=== PATIENT | female | born 1990 | race Caucasian/White ===

== ENCOUNTER 2016-08-24 20:33 | Emergency (ER) | payer OTHER ==
[~2016-08-24] VITALS: Ht 195.6 cm; Wt 143.2 kg
[~2016-08-24 20:33] MED LIST: AMOXICILLIN 8751 TAB PO; AMOXICILLIN875 MG PO; ATIVAN 0.50.5 MG/TAB PO; BACTRIM DS 8001 TAB PO; BIRTH CONTROL PILLS; CEPHALEXIN500 M1 PO; CIPRO 500MG TA500 MG PO; DOXYCYCLINE 10100 MG PO; FLAGYL500 MG PO; FLEXERIL 1010 MG/TAB PO; LOTRIMIN1% TP; MACROBID 1100 MG/CAP PO; MEDROL 4MG DOSPA4 MG PO; MOTRIN 800800 MG/TAB PO; NAPROSYN500 MG PO; NORCO 325 MG-51 TAB PO; NORCO 325 MG-7.1 TAB PO; OMNICEF 300MG300 MG PO; PAXIL PO; PEPCID 20MG TAB20 MG PO; PERCOCET 325 MG1 TA2 PO; PERCOCET 5/321 UDTAB PO; PHARMASSURE CHE30 MG PO; PHENERGAN 25 TA25 MG PO; PHENERGAN W/CO120 ML PO; PREDNISONE20 MG PO; PREVACID 30MG30 MG PO; PRILOSEC 20MG20 MG PO; PROAIR HFA0.09 MG/AC IH; PROMETHAZINE12.5 M5 PO; PROTONIX 40MG T40 MG PO; RECLIPSEN 0.151 TAB PO; SELENIUM2 PO; SYNTHROID0.075 MG/T PO; SYNTHROID0.1 MG/TAB PO; SYNTHROID0.2 MG/TAB PO; SYNTHROID0.5 MG PO; TUSS PO; ULTRAM 50MG TAB50 MG PO; VENTOLIN0.09 MG IH; VICOPROFEN; ZITHROMAX 250M250 MG PO; ZITHROMAX Z PA250 MG PO; ZOFRAN 4MG T4 MG/TAB PO; ZOFRAN 8MG8 MG PO; ZOFRAN ODT8 MG PO; ZOFRAN8 MG PO; ZOLOFT100 MG PO
[2016-08-24 20:39] VITALS: TEMP 98.1
[2016-08-24 21:52] LABS: PH 6 (5-8); SQUAMOUS EPITHELIAL 0-2 /hpf; URINE APPEARANCE Hazy; URINE BACTERIA None Seen /hpf; URINE BILIRUBIN Negative (NEGATIVE); URINE BLOOD 3+ (NEGATIVE); URINE COLOR Yellow; URINE GLUCOSE Negative (NEGATIVE); URINE KETONE 2+ (NEGATIVE); URINE RBC >50 /hpf; URINE UROBILINOGEN Negative (NEGATIVE)
[2016-08-24 21:53] LABS: URINE WBC 0-2 /hpf
[2016-08-24 22:02] LABS: BASO % 0.4 % (0.0-2.0); EOS % 0.4 % (0-4.0); GRAN # 5.4 (1.4-6.5); GRAN % 63.6 % (42.2-75.2); HEMATOCRIT 39.7 % (37.0-47.0); HEMOGLOBIN 13.4 g/dl (12.5-16.0); LYMPH # 2.4 (1.2-3.4); LYMPH % 28.3 % (20.0-51.0); MEAN CELL VOLUME 94 fl (80.0-100.0); MEAN CORPUSCULAR HEMOGLOBIN 32 pg (27.0-31.0); MEAN CORPUSCULAR HGB CONC 34 g/dl (33.0-37.0); MONO # 0.6 (0.1-0.6); MONO % 6.6 % (1.7-9.3); PLATELET COUNT 240 K/mm3 (130-400); RED BLOOD COUNT 4.22 M/mm3 (4.10-5.30); REDCELL DISTRIBUTION WIDTH-CV 11.9 % (11.5-14.5); WHITE BLOOD COUNT 8.5 K/mm3 (4.8-10.8)
[2016-08-24 22:18] LABS: ADJUSTED CALCIUM 9.3 mg/dL (8.4-10.2); ALBUMIN 4.5 gm/dL (3.5-5.0); BILIRUBIN,TOTAL 0.5 mg/dL (0.0-1.0); CALCIUM 9.7 mg/dL (8.4-10.2); CREATININE, serum 0.84 mg/dL (0.52-1.25); POTASSIUM 4.2 mmol/L (3.4-5.0); TOTAL PROTEIN 7.7 gm/dL (6.4-8.2)
[2016-08-24] MEDS ORDERED: NORCO 325 MG-51 TAB PO (23:31)
[2016-08-24 23:38] VITALS: BP 137/73; PULSE 86
[2016-08-25 01:13] LABS: CHLAMYDIA/TRACH by PCR Female Not Detected; NEISSERIA GON by PCR Female Not Detected
== END 2016-08-24 23:39 | disposition home or self-care (01) ==
LOC: COL.ER 20:33
PROVIDERS: Nurse Practitioner
DX: R10.2 Pelvic and perineal pain (principal); N93.9 Abnormal uterine and vaginal bleeding, unspecified
CPT/HCPCS: J1170; J1885; J2405; J7030

== ENCOUNTER 2016-11-06 16:56 | Emergency (ER) | payer SELFPAY ==
[~2016-11-06] VITALS: Ht 195.6 cm; Wt 159.1 kg
[2016-11-06 17:00] VITALS: TEMP 98
[2016-11-06] MEDS ORDERED: FLONASEALLERGY NS (17:39)
[2016-11-06] MEDS ORDERED: AMOXICILLIN 50500 MG PO (17:39)
[2016-11-06] MEDS ORDERED: ALLEGRA-D 24HR1 T24 PO (17:39)
[2016-11-06] MEDS ORDERED: NORCO 325 MG-51 TAB PO (17:39)
[2016-11-06 18:07] VITALS: BP 121/79; PULSE 106
== END 2016-11-06 18:08 | disposition home or self-care (01) ==
LOC: COL.ER 16:56
DX: H65.192 Other acute nonsuppurative otitis media, left ear (principal); H91.92 Unspecified hearing loss, left ear
CPT/HCPCS: J1170

== ENCOUNTER 2016-11-27 14:37 | Emergency (ER) | payer SELFPAY ==
[~2016-11-27] VITALS: Ht 195.6 cm; Wt 159.1 kg
[~2016-11-27 14:37] MED LIST changes: +ALLEGRA-D 24HR1 T24 PO; +AMOXICILLIN 50500 MG PO; +FLONASEALLERGY NS
[2016-11-27 14:43] VITALS: BP 143/80; TEMP 98.2
[2016-11-27] MEDS ORDERED: NORCO 325 MG-51 TAB PO (16:38)
[2016-11-27] MEDS ORDERED: ZOFRAN 4MG T4 MG/TAB PO (16:38)
[2016-11-27 17:14] VITALS: PULSE 80
== END 2016-11-27 17:15 | disposition home or self-care (01) ==
LOC: COL.ER 14:37
DX: S06.0X9A Concussion with loss of consciousness of unspecified duration, initial encounter (principal); W22.8XXA Striking against or struck by other objects, initial encounter; F17.210 Nicotine dependence, cigarettes, uncomplicated; R40.2412 Glasgow coma scale score 13-15, at arrival to emergency department
CPT/HCPCS: J1170; J2405; J2550; J7030